=== PATIENT | male | born 1960 | race Caucasian/White ===

== ENCOUNTER → 2018-11-26 | Emergency (ER) | payer OTHER ==
[~2018-11-26] VITALS: Ht 152.4 cm; Wt 121.6 kg
[~2018-11-26] MED LIST: BUSPIRONE HCL10 MG; ENALAPRIL MALEA20 MG; KETO10TA2 PO; NORFLEX100MG PO; SYNTHROID50 MCG
== END | disposition home or self-care (01) ==
LOC: ER 21:50
DX: M54.5 Low back pain (principal)

== ENCOUNTER 2019-09-21 09:16 | Outpatient (CLI) | payer OTHER | END 2019-09-21 09:30 | disposition home or self-care (01) | LOC: LAB 09:16 | DX: N40.0 Benign prostatic hyperplasia without lower urinary tract symptoms (principal); R00.2 Palpitations; I11.9 Hypertensive heart disease without heart failure; E78.2 Mixed hyperlipidemia ==

== ENCOUNTER 2019-10-02 13:02 | Outpatient (CLI) | payer OTHER | END 2019-10-02 13:18 | disposition home or self-care (01) | LOC: LAB 13:02 | DX: N40.0 Benign prostatic hyperplasia without lower urinary tract symptoms (principal) ==

== ENCOUNTER → 2020-06-06 | Outpatient (CLI) | payer OTHER | END | disposition home or self-care (01) | LOC: TOM 07:11 | PROVIDERS: ATTEND Internal Medicine Cardiovascular Disease | DX: N28.89 Other specified disorders of kidney and ureter (principal); D30.12 Benign neoplasm of left renal pelvis ==

== ENCOUNTER 2020-06-29 08:23 | Outpatient (CLI) | payer OTHER | END 2020-06-29 12:47 | disposition home or self-care (01) | LOC: NUCLEAR 08:23 | PROVIDERS: ATTEND Urology | DX: C64.1 Malignant neoplasm of right kidney, except renal pelvis (principal) | CPT/HCPCS: A9539; 78708; J1940 ==

== ENCOUNTER 2020-07-01 06:07 | Outpatient (CLI) | payer OTHER | END 2020-07-01 07:09 | disposition home or self-care (01) | LOC: NUCLEAR 06:07 | PROVIDERS: ATTEND Urology | DX: I20.8 Other forms of angina pectoris (principal); C64.1 Malignant neoplasm of right kidney, except renal pelvis | CPT/HCPCS: J0153; A9500; 78452; 93017 ==

== ENCOUNTER 2020-12-02 07:37 | Outpatient (CLI) | payer OTHER | END 2020-12-02 08:43 | disposition home or self-care (01) | LOC: TOM 07:37 | PROVIDERS: ATTEND Urology | DX: C64.1 Malignant neoplasm of right kidney, except renal pelvis (principal) ==

== ENCOUNTER → 2021-03-15 07:53 | Outpatient (CLI) | payer OTHER | END | disposition home or self-care (01) | LOC: LAB 07:53 | PROVIDERS: ATTEND Urology | DX: C64.1 Malignant neoplasm of right kidney, except renal pelvis (principal) ==

== ENCOUNTER → 2021-03-15 08:34 | Outpatient (CLI) | payer OTHER | END | disposition home or self-care (01) | LOC: RAD 08:34 | PROVIDERS: ATTEND Urology | DX: M50.321 Other cervical disc degeneration at C4-C5 level (principal); M43.8X5 Other specified deforming dorsopathies, thoracolumbar region ==

== ENCOUNTER 2021-08-14 07:59 | Outpatient (CLI) | payer OTHER | END 2021-08-14 08:15 | disposition home or self-care (01) | LOC: MRI 07:59 | PROVIDERS: ATTEND Urology | DX: C64.1 Malignant neoplasm of right kidney, except renal pelvis (principal) | CPT/HCPCS: 72197; 74183 ==